=== PATIENT | female | born 1985 | race African-American/Black ===

== ENCOUNTER 2023-04-25 19:33 | Emergency (ER) | payer MEDICAID ==
[~2023-04-25] VITALS: Ht 170.2 cm; Wt 120.0 kg
[2023-04-25 19:45] VITALS: BP 145/76; PULSE 110; RESP 20; TEMP 100; O2SAT 98
[2023-04-25] MEDS ORDERED: IBUPROFEN 600MG TABLET PO ONE (21:30)
== END 2023-04-26 07:23 | disposition left against medical advice (07) ==
LOC: ER 19:33
DX: R05.9 Cough, unspecified (principal); Z53.21 Procedure and treatment not carried out due to patient leaving prior to being seen by health care provider
CPT/HCPCS: 99281

== ENCOUNTER 2023-07-01 21:08 | Emergency (ER) | payer MEDICAID ==
[~2023-07-01] VITALS: Ht 170.2 cm; Wt 108.0 kg
[2023-07-01 21:17] VITALS: BP 170/98; PULSE 89; RESP 20; TEMP 99.2; O2SAT 98
[2023-07-01 21:42] LABS: BASOPHILS % 0.8 % (0.0-2.0); EOSINOPHILS % 3.3 % (0.0-5.0); HEMATOCRIT. 36.5 % (36.0-48.0); HEMOGLOBIN. 11.8 g/dL (12.0-16.0); LYMPHOCYTES % 51.7 % (20.0-50.0); MEAN CORPUSCULAR HGB CONC 32.3 g/dL (31.0-37.0); MEAN CORPUSCULAR VOLUME 83.7 fL (81.0-99.0); MEAN PLATELET VOLUME 7.3 fl (7.4-10.4); MONOCYTES % 9.4 % (2.0-8.0); NEUTROPHILS % 34.8 % (40.0-76.0); PLATELET 364 x1000/uL (130-400); RED BLOOD CELL COUNT 4.36 mill/uL (4.2-5.4); RED CELL DISTRIBUTION WIDTH 17.4 % (11.6-14.6); WHITE BLOOD COUNT 7.4 x1000/uL (4.5-11.0)
[2023-07-01 22:07] LABS: ALANINE AMINOTRANSFERASE 18 IU/L (10-49); ALBUMIN 4.8 g/dL (3.2-4.8); ASPARTATE AMINOTRANSFERASE 19 IU/L (<34); BILIRUBIN TOTAL 0.2 mg/dL (0.1-1.0); CALCIUM 8.9 mg/dL (8.7-10.4); CARBON DIOXIDE 25 mEq/L (21-32); CHLORIDE 105 mEq/L (98-107); CREATININE 0.7 mg/dL (0.6-1.0); GLUCOSE 86 mg/dL (70-105); POTASSIUM 3.8 mEq/L (3.5-5.1); PROTEIN TOTAL 8.4 g/dL (6.0-8.3); SODIUM 137 mEq/L (136-145); UREA NITROGEN BLOOD 9 mg/dL (9-23)
[2023-07-01] MEDS ORDERED: TUSSL MT (22:32)
[2023-07-01] MEDS ORDERED: TOPUD MT (22:32)
[2023-07-01] MEDS ORDERED: ONDA4TAB11 PO (22:32)
== END 2023-07-01 22:40 | disposition home or self-care (01) ==
LOC: ER 21:31
DX: B34.9 Viral infection, unspecified (principal); Z88.0 Allergy status to penicillin
CPT/HCPCS: 36415; 71045; 80053; 85025; 99284

== ENCOUNTER 2024-06-23 22:40 | Inpatient (IN) | payer MEDICAID ==
[~2024-06-23] VITALS: Ht 170.2 cm; Wt 113.0 kg
[~2024-06-23 22:40] MED LIST: ONDA-239 PO; TOPUD MT; TUSSL MT
[2024-06-23 23:53] LABS: BASOPHILS % 0.6 % (0.0-2.0); EOSINOPHILS % 2.9 % (0.0-5.0); HEMATOCRIT. 37.4 % (36.0-48.0); HEMOGLOBIN. 12.2 g/dL (12.0-16.0); LYMPHOCYTES % 52.5 % (20.0-50.0); MEAN CORPUSCULAR HEMOGLOBIN 29.1 pg (28.0-32.0); MEAN CORPUSCULAR HGB CONC 32.5 g/dL (31.0-37.0); MEAN CORPUSCULAR VOLUME 89.4 fL (81.0-99.0); MEAN PLATELET VOLUME 7.7 fl (7.4-10.4); MONOCYTES % 6.9 % (2.0-8.0); NEUTROPHILS % 37.1 % (40.0-76.0); PLATELET 305 x1000/uL (130-400); RED BLOOD CELL COUNT 4.18 mill/uL (4.2-5.4); RED CELL DISTRIBUTION WIDTH 14.8 % (11.6-14.6); WHITE BLOOD COUNT 6.8 x1000/uL (4.5-11.0)
[2024-06-24] VITALS (7 sets, daily range): BP systolic 111–158; BP diastolic 62–90; PULSE 75–93; RESP 18–21; TEMP 36.2–36.7; O2SAT 99–100
[2024-06-24 00:01] LABS: INR 0.9; PROTHROMBIN TIME 10.2 sec (9.6-11.0)
[2024-06-24 00:03] LABS: CHLORIDE 104 mEq/L (98-107); POTASSIUM 3.6 mEq/L (3.5-5.1); SODIUM 138 mEq/L (136-145)
[2024-06-24 00:04] LABS: CALCIUM 8.9 mg/dL (8.7-10.4); CARBON DIOXIDE 27 mEq/L (21-32)
[2024-06-24 00:09] LABS: CREATININE 0.6 mg/dL (0.6-1.0); GLUCOSE 153 mg/dL (70-105); UREA NITROGEN BLOOD 12 mg/dL (9-23)
[2024-06-24 00:23] LABS: ETHANOL BLOOD < 10 mg/dL (<10); TROPONIN I HIGH SENSITIVITY < 4 ng/L (3.0-34)
[2024-06-24 00:30] LABS: HCG SCREEN NEGATIVE
[2024-06-24] MEDS ORDERED: GUAIFENESIN 200MG/10ML SUGAR FREE UDC PO PRN (01:45)
[2024-06-24] MEDS ORDERED: ZOLPIDEM TARTRATE 5MG TABLET PO PRN (01:45)
[2024-06-24] MEDS ORDERED: MAGNESIUM/ALUMINUM HYDROXIDE/SIMETHICONE 30ML UDC PO PRN (01:45)
[2024-06-24] MEDS ORDERED: ACETAMINOPHEN 325MG TABLET PO PRN ×2 (01:45)
[2024-06-24] MEDS ORDERED: IPRATROPIUM/ALBUTEROL 0.5-3(2.5)MG/3ML NEB HHN PRN (01:45)
[2024-06-24] MEDS ORDERED: DIPHENHYDRAMINE 50MG/ML VIAL IV PRN (01:45)
[2024-06-24] MEDS ORDERED: DOCUSATE SODIUM 100MG CAPSULE PO PRN (01:45)
[2024-06-24] MEDS ORDERED: ONDANSETRON HCL 4MG/2ML INJ IV PRN (01:45)
[2024-06-24] MEDS ORDERED: CLONIDINE 0.1MG TABLET PO PRN (01:45)
[2024-06-24 06:13] LABS: CHLORIDE 107 mEq/L (98-107); SODIUM 139 mEq/L (136-145)
[2024-06-24 06:14] LABS: CALCIUM 8.9 mg/dL (8.7-10.4); CARBON DIOXIDE 24 mEq/L (21-32)
[2024-06-24 06:19] LABS: CREATININE 0.6 mg/dL (0.6-1.0); GLUCOSE 134 mg/dL (70-105); TRIGLYCERIDE 83 mg/dL (0-150)
[2024-06-24 06:20] LABS: LDL CHOLESTEROL 34 mg/dL (5-100); UREA NITROGEN BLOOD 11 mg/dL (9-23)
[2024-06-24 06:21] LABS: ALANINE AMINOTRANSFERASE 10 IU/L (10-49); ALBUMIN 3.8 g/dL (3.2-4.8); ASPARTATE AMINOTRANSFERASE 12 IU/L (<34); CHOLESTEROL 106 mg/dL (<200); PROTEIN TOTAL 6.6 g/dL (6.0-8.3)
[2024-06-24 06:22] LABS: BILIRUBIN TOTAL 0.2 mg/dL (0.1-1.0); HDL CHOLESTEROL 58 mg/dL (>65); PHOSPHORUS 2.9 mg/dL (2.5-4.9)
[2024-06-24 06:25] LABS: THYROID STIMULATING HORMONE 2.27 uIU/mL (0.55-4.78)
[2024-06-24 07:11] LABS: BILIRUBIN DIRECT < 0.1 mg/dL (<=3.0)
[2024-06-24] MEDS ORDERED: DEXTROSE 50% WATER 50ML SYRINGE IV PRN ×2 (08:15→17:00)
[2024-06-24] MEDS: PREDNISONE 20MG TABLET PO SCH (09:00)
[2024-06-24] MEDS: ENOXAPARIN 30MG/0.3ML SYR SUBCUT SCH (09:00)
[2024-06-24] MEDS: ASPIRIN 81MG EC TABLET PO SCH (09:00)
[2024-06-24] MEDS: CLOPIDOGREL 75MG TABLET PO SCH (09:00)
[2024-06-24] MEDS: AMLODIPINE 10MG TABLET PO SCH (09:02)
[2024-06-24] MEDS: FAMOTIDINE 20MG/2ML VIAL IV SCH (09:03)
[2024-06-24 09:08] LABS: HEMATOCRIT 36.9 % (36.0-48.0); HEMOGLOBIN 12.2 g/dL (12.0-16.0); MEAN CORPUSCULAR HEMOGLOBIN 28.9 pg (28.0-32.0); MEAN CORPUSCULAR VOLUME 87.6 fL (81.0-99.0); PLATELET 292 x1000/uL (130-400); RED BLOOD CELL COUNT 4.21 mill/uL (4.2-5.4)
[2024-06-24 09:33] LABS: CREATINE KINASE MB FRACTION < 0.5 ng/mL (0.5-3.6)
[2024-06-24 09:34] LABS: CREATINE KINASE 112 IU/L (34-145)
[2024-06-24 09:41] LABS: TROPONIN I HIGH SENSITIVITY < 4 ng/L (3.0-34)
[2024-06-24] MEDS: BLOOD SUGAR DIAGNOSTIC STRIP TEST SCH ×2 (13:15→17:12)
[2024-06-24] MEDS: INSULIN LISPRO 100 UNITS/ML SUBCUT SCH (17:12)
[2024-06-24] MEDS ORDERED: LORAZEPAM 2MG/ML UD SYRINGE IV PRN (17:45)
[2024-06-24] MEDS ORDERED: LORAZEPAM 2MG/ML INJ IV PRN (17:45)
[2024-06-24 18:00] LABS: CREATINE KINASE 119 IU/L (34-145); CREATINE KINASE MB FRACTION < 0.5 ng/mL (0.5-3.6)
[2024-06-24 18:15] LABS: TROPONIN I HIGH SENSITIVITY < 4 ng/L (3.0-34)
[2024-06-24] MEDS ORDERED: IOHEXOL-350 100 ML BOTTLE ONE (20:07)
[2024-06-24] MEDS: ATORVASTATIN CALCIUM 40MG TABLET PO SCH (22:00)
[2024-06-25] VITALS: BP 128/87; PULSE 79; RESP 20; TEMP 36.3; O2SAT 100
[2024-06-25 04:00] VITALS: BP 119/80; PULSE 75; RESP 19; TEMP 35.6; O2SAT 100
[2024-06-25 08:00] VITALS: BP 137/92; PULSE 86; RESP 19; TEMP 36.7; O2SAT 100
[2024-06-25 08:18] LABS: CHLORIDE 107 mEq/L (98-107); POTASSIUM 4.2 mEq/L (3.5-5.1); SODIUM 140 mEq/L (136-145)
[2024-06-25 08:19] LABS: CARBON DIOXIDE 25 mEq/L (21-32)
[2024-06-25 08:24] LABS: CREATININE 0.6 mg/dL (0.6-1.0); GLUCOSE 105 mg/dL (70-105)
[2024-06-25 08:25] LABS: UREA NITROGEN BLOOD 10 mg/dL (9-23)
[2024-06-25 08:27] LABS: PHOSPHORUS 3.1 mg/dL (2.5-4.9)
[2024-06-25 08:39] LABS: BASOPHILS % 0.6 % (0.0-2.0); EOSINOPHILS % 2.3 % (0.0-5.0); HEMATOCRIT. 36.8 % (36.0-48.0); HEMOGLOBIN. 11.9 g/dL (12.0-16.0); LYMPHOCYTES % 51.6 % (20.0-50.0); MEAN CORPUSCULAR HEMOGLOBIN 28.4 pg (28.0-32.0); MEAN CORPUSCULAR HGB CONC 32.4 g/dL (31.0-37.0); MEAN CORPUSCULAR VOLUME 87.7 fL (81.0-99.0); MEAN PLATELET VOLUME 8.1 fl (7.4-10.4); MONOCYTES % 8.3 % (2.0-8.0); NEUTROPHILS % 37.2 % (40.0-76.0); PLATELET 300 x1000/uL (130-400); RED CELL DISTRIBUTION WIDTH 14.8 % (11.6-14.6); WHITE BLOOD COUNT 6.4 x1000/uL (4.5-11.0)
[2024-06-25 12:00] VITALS: BP 151/90; PULSE 80; RESP 19; TEMP 36.5; O2SAT 97
[2024-06-25] MEDS ORDERED: ASPI-1406 PO (12:58)
[2024-06-25] MEDS ORDERED: LIP40 PO (12:58)
[2024-06-25 16:00] VITALS: BP 149/95; PULSE 93; RESP 15; TEMP 36.4; O2SAT 94
[2024-06-25 18:23] VITALS: BP 149/95; PULSE 93; TEMP 97.5; O2SAT 94
== END 2024-06-25 19:15 | disposition home or self-care (01) | DRG 47 ==
LOC: ER 22:40 → 6WST 06-24 00:29 → EDBEDREQ 06-24 00:30
PROVIDERS: ADMIT Internal Medicine; ATTEND Internal Medicine
DX: G45.9 Transient cerebral ischemic attack, unspecified (principal); E04.2 Nontoxic multinodular goiter; E11.9 Type 2 diabetes mellitus without complications; M35.00 Sjogren syndrome, unspecified; E66.9 Obesity, unspecified; F40.240 Claustrophobia; I77.6 Arteritis, unspecified; I10 Essential (primary) hypertension; Z90.721 Acquired absence of ovaries, unilateral; Z79.899 Other long term (current) drug therapy; Z88.0 Allergy status to penicillin; Z79.84 Long term (current) use of oral hypoglycemic drugs; Z68.38 Body mass index [BMI] 38.0-38.9, adult
CPT/HCPCS: 36415; 70496; 70498; 71045; 73090; 80048; 80061; 80076; 80320; 82550; 82553; 82962; 83036; 83735; 83880; 84100; 84439; 84443; 84484; 84703; 85025; 85027; 85379; 85651; 86038; 93005; 93970; 93971; 97165; 99291; J1650; J1815; J3490; J7512; Q9967; G0480